=== PATIENT | female | born 1975 | race Caucasian/White ===

== ENCOUNTER 2019-06-25 13:41 | Outpatient (CLI) | payer BC ==
--- NOTE | 2019-06-25 15:38 | MRI ---
MRI LUMBAR SPINE WITHOUT CONTRAST: Date: 06/25/2019 INDICATION: Lumbago. Sciatica right side. Low back pain. FINDINGS: Lumbar vertebra maintain normal height and alignment. There is loss of disc space at L5-S1. The other disc spaces are maintained. At L1-2, mild disc bulge abuts the anterior thecal sac. No central canal or foraminal stenosis. At L2-3, there is no significant disc bulge. Mild facet arthrosis. No central canal or foraminal sten osis. At L3-4, there is no significant disc bulge. Mild facet arthrosis and hypertrophy. No central canal o r foraminal stenosis. At L4-5, mild disc bulge abuts the thecal sac. Moderate facet arthrosis. No central canal or foramina l stenosis. At L5-S1, there is loss of disc space with mild disc bulge. There is evidence of a small central prot rusion indenting the anterior thecal sac. Mild facet hypertrophy. No central canal or foraminal steno sis. IMPRESSION: Loss of disc space at L5-S1. Small central protrusion at L5-S1 indents the anterior thecal sac. No si gnificant central canal or foraminal stenosis identified. POS: [id number]
== END 2019-06-25 13:42 | disposition home or self-care (01) ==
LOC: BICMRI 13:41
PROVIDERS: ATTEND Family Medicine
DX: M54.41 Lumbago with sciatica, right side (principal); M51.27 Other intervertebral disc displacement, lumbosacral region
CPT/HCPCS: 72148